=== PATIENT | female | born 1985 | race Caucasian/White ===

== ENCOUNTER 2024-12-11 16:53 | Outpatient (RCR) | payer OTHER, SELFPAY | END 2024-12-12 09:36 | disposition home or self-care (01) | LOC: PT 16:53 | PROVIDERS: PCP Family Medicine | DX: M54.14 Radiculopathy, thoracic region (principal); M51.34 Other intervertebral disc degeneration, thoracic region | CPT/HCPCS: 97010; 97014; 97112; 97162 ==